=== PATIENT | female | born 1980 | race Caucasian/White ===

== ENCOUNTER → 2018-09-20 13:42 | Outpatient (CLI) | payer BC, SELFPAY ==
[2018-09-20 14:16] LABS: Basophils % 0.2 % (0.1-2.0); Eosinophils # 0.1 K/mm3 (0.0-0.4); Eosinophils % 1.4 % (0.1-12.0); Hematocrit 34.7 % (37.0-47.0); Hemoglobin 11.3 g/dL (12.2-16.2); Lymphocytes # 2.2 K/mm3 (0.7-4.5); Lymphocytes % 40.7 % (10-50); Mean Corpuscular HGB Conc 32.5 g/dL (31.8-35.4); Mean Corpuscular Hemoglobin 27.7 pg (27.0-31.2); Mean Corpuscular Volume 85.1 fl (81-99); Mean Platelet Volume 9.3 fl (7.4-10.4); Monocytes # 0.4 K/mm3 (0.1-1.0); Neutrophils # 2.8 K/mm3 (1.8-7.8); Neutrophils % 50.9 % (37.0-80.0); Platelet Count 124 K/mm3 (142-424); Red Blood Count 4.08 M/mm3 (4.20-5.40); Red Cell Distribution Width 13.5 % (11.5-17.5); White Blood Count 5.4 K/mm3 (4.8-10.8)
[2018-09-20 14:29] LABS: HCG Qualitative, Serum Negative (Negative)
[2018-09-20 15:31] LABS: Alanine Aminotransferase 32 U/L (12-78); Albumin Level 2.6 gm/dL (3.4-5.0); Albumin/Globulin Ratio 0.7 (1.1-1.8); Alkaline Phosphatase 214 U/L (46-116); Anion Gap 13.3 mEq/L (5-15); Aspartate Amino Transferase 30 U/L (15-37); Bilirubin,Total 0.4 mg/dL (0.2-1.0); Blood Urea Nitrogen 14 mg/dL (7-18); Calcium 8.4 mg/dL (8.5-10.1); Carbon Dioxide 25 mmol/L (21.0-32.0); Chloride 109 mmol/L (98-107); Creatinine,Serum 0.24 mg/dL (0.55-1.02); Estimated Glomerular Filt Rate 322 ml/min (>60); GFR (African American) 390 ML/MIN (>60); Globulin 3.8 gm/dl (1.3-3.2); Glucose 108 mg/dL (74-106); Potassium 4.3 mmoL/L (3.5-5.1); Sodium 143 mmol/L (136-145); Thyroid Stimulating Hormone 0.01 uIU/ml (0.358-3.740); Total Protein,Serum 6.4 gm/dL (6.4-8.2); Triiodothryronine (T3) Uptake 46 % (31-39)
[2018-09-20 15:41] LABS: Free Thyroxine Index 12.7 ug/dL (5.93-13.13); T4 (Thyroxine) 27.6 ug/dl (4.7-13.3)
== END ==
PROVIDERS: Visit Provider Surgery
DX: K80.20 Calculus of gallbladder without cholecystitis without obstruction (principal)
CPT/HCPCS: 36415; 80053; 84436; 84443; 84479; 84703; 85025

== ENCOUNTER 2024-06-18 23:04 | Emergency (ER) | payer BC, SELFPAY ==
[2024-06-18 23:08] VITALS: BP 116/99; PULSE 93; RESP 18; TEMP 36.4; O2SAT 97; BMI 54.8
--- NOTE | 2024-06-18 23:12 | ED_ITS ---
Discharge Plan Disposition Patient Disposition: Home, Self-Care Prescriptions Prescriptions: No Action No Known Home Medications Referrals Follow up/Referrals: Provider,Referral, MD [Primary Care Provider] - See instructions Activity Restrictions/Add. Instructions Additional Instructions/Restrictions: Please follow-up with your primary care provider. Please return to the emergency department if you develop any new or worsening symptoms or become concerned for your health. Clinical Impressions Clinical Impression: Acute pain of right foot Print Language Print Language: Lao Discharge ED Provider: Fredis Bob General Adult HPI General Chief complaint: PAIN Stated complaint: R foot injury, swollen Time Seen by Provider: 06/18/24 23:12 History of Present Illness HPI narrative: 44-year-old female presents for right foot pain. She reports that her niece landed on her foot earlier tonight and it has been hurting. She is still able to walk but it is tender. She denies any pain proximal to the ankle. Reports normal sensation. Related Data Home Medications ?Medication ?Instructions ?Recorded ?Confirmed No Known Home Medications 10/20/18 11/02/18 Allergies Allergy/AdvReac Type Severity Reaction Status Date / Time No Known Allergies Allergy Verified 11/02/18 09:21 [facility] Disclaimer: The information contained in this section may have been updated after the patient was seen, as this information can be updated by other users. Social History Smoking Status: Never smoker second hand exposure: No alcohol intake: never substance use type: denies use current occupational status: employed Travel in the last 8 weeks: None household members: family housing: house current occupation: school caffeine: Yes Other Medical History Have you received the Flu Vaccine for this season: No Have you received the Pneumonia Vaccine: No ROS Obtained: Yes All systems reviewed & no additional complaints except as documented Physical Exam General General appearance: alert and in no apparent distress Head Head exam: atraumatic and normocephalic Eye Eye exam: Present normal appearance, PERRL and EOMI ENT ENT exam: Present normal oropharynx and normal external ear exam Neck Neck exam: Present normal inspection and full ROM Chest Chest inspection: Present normal inspection and symmetric chest wall rise; Absent tenderness Respiratory Respiratory exam: Present normal lung sounds bilaterally; Absent respiratory distress Cardiovascular Cardiovascular exam: Present regular rate and normal rhythm Abdominal Exam Abdominal exam: Present soft; Absent distention, tenderness or guarding Extremities Exam Extremities exam: Present normal inspection and tenderness (Right midfoot); Absent edema or joint swelling Back Exam Back exam: Present normal inspection; Absent tenderness Neurological Exam Neurological exam: Present alert and oriented X3; Absent motor sensory deficit Psychiatric Psychiatric exam: Present normal affect and normal mood Skin Skin exam: Present warm, dry and normal color Lymphatic Lymphatic Findings: no adenopathy Medical Decision Making Medical Records Medical records reviewed: Yes I reviewed the patient's medical records. Screening: Per USPSTF and CDC recommendations, given the prevalence of disease in our region, it is our hospital?s policy to screen for HIV and viral Hepatitis for all patients aged 18 and over and those with ongoing risk factors. Néstor Inquiry Pt receiving controlled substance: No Néstor was queried for this patient: No Vital Signs: 06/18/24 23:08 06/19/24 00:23 06/19/24 01:00 Temperature 97.5 F L 98.5 F Temperature Source Oral Oral Pulse Rate 71 74 Pulse Rate [Right Brachial] 93 H Respiratory Rate 18 18 Blood Pressure 104/49 L 122/69 Blood Pressure [Right Arm] 116/99 H Blood Pressure Mean [Right Arm] 104 Blood Pressure Source Automatic Cuff Blood Pressure Source [Right Arm] Automatic Cuff Blood Pressure Position Sitting Blood Pressure Position [Right Arm] Supine 02 Sat by Pulse Oximetry 97 96 Oxygen Delivery Method Room Air Room Air Lab Data Lab results reviewed: Yes I reviewed the patient's lab results. Orders (Tests/Meds): ORDERS Category Date Time Status Ankle XR -Right minimum 3 Views [XR ankle RT min 3V] Exams 06/18/24 23:12 Completed Stat Foot XR right minimum 3 views [XR foot RT min 3V] Stat Exams 06/18/24 23:12 Completed Medical Decision Narrative: 44-year-old female presents with right foot pain after her niece landed on it. History was obtained via interactive discussion with patient. On arrival, patient is [afebrile, hemodynamically stable, satting appropriately, alert, oriented x4, GCS 15], moving all extremities spontaneously. Full physical exam performed and significant for tenderness without obvious deformity or swelling compared to contralateral. Differential includes but is not limited to fracture, dislocation, neurovascular/ligamentous injury. Workup initiated including radiographs of the right ankle and foot. On re-evaluation, patient [remains afebrile, HD stable.] Imaging independently interpreted by me and significant for no acute fracture or dislocation. See radiology read for full review of final results. Given patient history, exam and workup, patient's presentation most likely represents bruising. No evidence of acute fracture or dislocation. Patient was discharged in stable condition with return precautions. Procedures Risk/Benefits of Procedure(s) Were Explained: Yes Critical Care Critical Care Time Critical Care Time: No
--- NOTE | 2024-06-18 23:12 | XR_ITS ---
PROCEDURE INFORMATION: Exam: XR Right Foot Exam date and time: 06/18/2024 11:23 PM Age: 44 years old Clinical indication: Injury or trauma; Other: Her right foot was stepped on by her niece; Other: Pain; Additional info: Her niece landed on her foot TECHNIQUE: Imaging protocol: Radiologic exam of the right foot. Views: 3 or more views. COMPARISON: CR XR ANKLE RT MIN 3V 06/18/2024 11:20 PM FINDINGS: Bones/joints: No acute fracture identified. No other acute bone or joint abnormality. Heel spurs. Soft tissues: Soft tissue swelling over the dorsal aspect of the metatarsals. IMPRESSION: No acute bony abnormality.
--- NOTE | 2024-06-18 23:12 | XR_ITS ---
PROCEDURE INFORMATION: Exam: XR Right Ankle Exam date and time: 06/18/2024 11:20 PM Age: 44 years old Clinical indication: Injury or trauma; Other: Her right foot was stepped on by her niece; Other: Pain; Additional info: Her niece landed on her foot TECHNIQUE: Imaging protocol: Radiologic exam of the right ankle. Views: 3 or more views. COMPARISON: No relevant prior studies available. FINDINGS: Bones/joints: No acute fracture identified. Degenerative changes of the ankle and partially included midfoot. Moderate-sized heel spurs. Soft tissues: Diffuse [id number] soft tissue edema and swelling around the ankle and partially included lower leg. IMPRESSION: Diffuse soft tissue swelling. No acute bony abnormality.
[2024-06-19 00:23] VITALS: BP 104/49; PULSE 71; O2SAT 96
[2024-06-19 01:00] VITALS: BP 122/69; PULSE 74; RESP 18; TEMP 36.9; O2SAT 95
== END 2024-06-19 01:02 | disposition home or self-care (01) ==
PROVIDERS: Emergency Provider Emergency Medicine
DX: M79.671 Pain in right foot (principal); W50.0XXA Accidental hit or strike by another person, initial encounter; Y93.89 Activity, other specified; Y92.9 Unspecified place or not applicable
CPT/HCPCS: 73610; 73630; 99283